=== PATIENT | male | born 1980 | race Caucasian/White ===

== ENCOUNTER 2019-12-22 08:54 | Outpatient (REF) | payer MEDICAID, OTHER, SELFPAY ==
--- NOTE | 2019-12-22 09:07 | US_ITS ---
EXAMINATION: US THYROID CLINICAL INFORMATION: Hypothyroidism. COMPARISON: None TECHNIQUE: Linear transducer conti-scale and color Doppler examination with attention to the region of the thyroid. FINDINGS: SIZE: The thyroid is within normal size and grossly symmetric. Measurements of the thyroid lobes and nodules are given in sagittal, anteroposterior and transverse dimensions respectively. Right Thyroid Lobe: 5.6 x 1.8 x 2.6 cm, volume 13.5 mL. Parenchyma: The gland echotexture is heterogeneous. Thyroid vascularity is normal. Left Thyroid Lobe: 6.4 x 1.5 x 2.3 cm, volume 11.5 mL. Parenchyma: The gland echotexture is heterogeneous. Thyroid vascularity is normal. Isthmus: 0.3 cm in maximum AP dimension. Parenchyma: There is no isolated dominant nodule. No calcifications. Some fine background micronodules are suggested on some of the images which could be associated with Margarette's thyroiditis. Clinically correlate. NODES: No lymphadenopathy is seen in the tissue surrounding the thyroid gland. US/US thyroid IMPRESSION: 1. Thyroid within normal size. No isolated dominant nodule or adenopathy. 2. Questionable micronodules suggested on some of the images which may be associated with Margarette's thyroiditis. Clinically correlate.
== END 2019-12-22 08:55 | disposition home or self-care (01) ==
LOC: HO.US 08:54
PROVIDERS: Visit Provider Internal Medicine
DX: E03.9 Hypothyroidism, unspecified (principal)
CPT/HCPCS: 76536

== ENCOUNTER 2021-06-01 09:43 | Outpatient (REF) | payer MEDICAID, OTHER, SELFPAY ==
--- NOTE | 2021-06-01 09:47 | EMG_ITS ---
This is a 40-year-old man with right greater than left upper extremity numbness. He works as a painter and body mechanic apprentice. PHYSICAL EXAMINATION: He is alert and oriented with normal intellectual functions. No Tinel or Phalen sign. IMPRESSION: Carpal tunnel syndrome. Nerve conduction EMG study: Moderately severe carpal tunnel syndrome on the right. Early carpal tunnel syndrome on the left. Normal EMG of the right C5-T1 innervated muscles. MD JIM Sainz/LUIS MANUEL / [id number]
== END 2021-06-01 09:44 | disposition home or self-care (01) ==
LOC: HO.NEURO 09:43
PROVIDERS: Visit Provider Pediatrics
DX: R20.0 Anesthesia of skin (principal)
CPT/HCPCS: 95885; 95913

== ENCOUNTER 2022-10-29 00:30 | Emergency (ER) | payer MEDICAID, OTHER, SELFPAY ==
--- NOTE | 2022-10-29 00:31 | ED.GENADULT ---
HPI - General Adult General Chief complaint: General Medical Stated complaint: HTN Time Seen by Provider: 10/29/22 00:30 Source: patient Mode of arrival: ambulatory Limitations: no limitations History of Present Illness HPI narrative: Patient with History of borderline hypertension not take any medication for last 1 year under increased stress notice a mild headache and checked his blood pressure was 160/90s no chest pain or shortness of breath had mild headache Related Data Previous Rx's Medication Instructions Recorded hydrochlorothiazide 25 mg tablet 25 mg PO QAM #30 tabs 10/29/22 lorazepam 0.5 mg tablet (Ativan) 0.5 mg PO BEDTIME PRN sleep #10 10/29/22 tabs Allergies Allergy/AdvReac Type Severity Reaction Status Date / Time No Known Allergies Allergy Verified 10/29/22 00:41 Review of Systems Review of Systems: Yes all other systems are reviewed and are negative [facility] Past Medical History Medical History (Updated 10/29/22 @ 01:46 by Turner Orellana MD) Hypertension Social History Social History Advance Directives: No Advance Directives Information Provided: Yes Physical Exam ED Vital Signs: Vital Signs - 24 hr 10/29/22 00:38 Pulse Rate 80 Respiratory Rate 18 Blood Pressure 140/91 H Pulse Oximetry 97 Oxygen Delivery Method Room Air BMI result Body Mass Index 35.5 Appearance: Alert. Oriented X3. No acute distress. Anxious Eyes: PERRLA, No Nystagmus ENT: Pharynx normal. Oral Mucosa moist Neck: Normal inspection. Neck supple. CVS: Normal heart rate and rhythm. Pulses normal. Respiratory: No respiratory distress. Equal air entry bilateral, no wheezing/rales/rhonchi Abdomen: Soft and nontender. Bowel sounds are present, no mass palpable, no CVA tenderness Skin: Skin warm and dry. Normal skin color. Normal skin turgor. Extremities: No lower extremity edema. No calf tenderness Neuro: Oriented X 3. No motor deficit. No sensory deficit.No cerebellar signs , cranial nerves II-XII intact Medications Administered Discontinued Medications Generic Name Dose Route Start Last Admin Trade Name Freq PRN Reason Stop Dose Admin Lorazepam 0.5 mg 10/29/22 00:47 10/29/22 00:56 Lorazepam 0.5 Mg Tablet PO 10/29/22 00:48 0.5 mg ONCE ONE Administration Medical Decision Making Medical Decision Making [facility] Narrative: Patient with anxiety with borderline hypertension EKG without any ischemic changes blood pressure improved during stay in the ER discharge patient home on Ativan 0.5 mg for anxiety and stress and hydrochlorothiazide for blood pressure control Lab Data [facility] Lab Attestation statement: I reviewed the patient's lab results. 10/29/22 00:54 10/29/22 00:54 Labs: Lab Results 10/29/22 10/29/22 Range/Units 00:54 00:54 WBC 7.2 (4.8-10.8) X10*3/uL RBC 4.66 (4.60-5.80) X10*6/uL Hgb 14.5 (14.0-18.0) g/dl Hct 43.2 (42.0-52.0) % MCV 92.7 (80.0-98.0) fL MCH 31.1 (27.0-33.0) pg MCHC 33.6 (31.0-36.0) g/dl RDW 12.9 (11.0-16.0) % Plt Count 263 (160-400) X10*3/uL MPV 9.4 (9.4-12.4) fL Immature Gran % (Auto) 1.3 H (0.0-0.4) % Neut % (Auto) 52.5 (45-73) % Lymph % (Auto) 32.2 (20-40) % [place] % (Auto) 9.3 (2-11) % Eos % (Auto) 3.6 (0-4) % Baso % (Auto) 1.1 (0-2) % Lymph # (Auto) 2.3 (1.2-4.9) X10*3/uL [place] # (Auto) 0.7 (0.1-1.2) X10*3/uL Eos # (Auto) 0.3 (0.0-0.4) X10*3/uL Baso # (Auto) 0.1 (0.0-0.2) X10*3/uL Abs Immat Gran (auto) 0.09 H (0.00-0.03) X10*3/uL Absolute Neuts (auto) 3.8 (2.0-8.3) x10*3/uL Absolute Nucleated RBC 0.000 (0.0-0.012) X10*3/uL Nucleated RBC % (auto) 0.0 (0.0-0.2) /100WBC Sodium 140 (135-145) mmol/L Potassium 3.9 (3.3-5.1) mmol/L Chloride 107 (96-108) mmol/L Carbon Dioxide 25 (22-29) mmol/L Anion Gap 12 (12-20) BUN 23 H (9-16) mg/dL Creatinine 0.99 (0.5-1.4) mg/dL Estim Creat Clear Calc 107.5 Estimated GFR > 60 Random Glucose 101 (60-115) mg/dL Calcium 9.4 (8.4-10.2) mg/dL Independent Interpretation I performed an independent interpretation of an: EKG Interpretation: Normal sinus rhythm heart rate 77 beats per minute occasional PVCs unifocal no acute ST wave changes no acute ischemia Discharge Plan Discharge Clinical Impression: Anxiety, Hypertension Patient Disposition: Home, Self-Care Instructions: Chronic Hypertension (ED), Anxiety (ED) Additional Instructions: Take medication to relax and sleep as needed Check blood pressure daily should be less than 135/85 Take hydrochlorothiazide 25 mg daily for blood pressure control Follow with PCP Prescriptions: New hydrochlorothiazide 25 mg tablet 25 mg PO QAM Qty: 30 0RF lorazepam [Ativan] 0.5 mg tablet 0.5 mg PO BEDTIME PRN (Reason: sleep) Qty: 10 0RF
[2022-10-29 00:33] VITALS: BP 164/106
--- NOTE | 2022-10-29 00:36 | ECG_ITS ---
Test Reason : HYPERTENSION Blood Pressure : / mmHG Vent. Rate : 077 BPM Atrial Rate : 077 BPM P-R Int : 146 ms QRS Dur : 082 ms QT Int : 364 ms P-R-T Axes : 030 041 024 degrees QTc Int : 411 ms Sinus rhythm with occasional Premature ventricular complexes Otherwise normal ECG No previous ECGs available Referred By: Turner Orellana Electronically Signed By:AMARA MOYA
[2022-10-29 00:38] VITALS: BP 140/91; PULSE 80; RESP 18; O2SAT 97; BMI 35.5
[2022-10-29] MEDS: LORazepam 0.5 MG TABLET PO (00:56)
[2022-10-29 00:59] LABS: MANUAL DIFF FLAG NO
[2022-10-29 01:03] LABS: Basophils Absolute Auto 0.1 X10*3/uL (0.0-0.2); Basophils Percent Auto 1.1 % (0-2); Eosinophils Absolute Auto 0.3 X10*3/uL (0.0-0.4); Eosinophils Percent Auto 3.6 % (0-4); Hematocrit 43.2 % (42.0-52.0); Hemoglobin 14.5 g/dl (14.0-18.0); Imm Gran Abs Auto 0.09 X10*3/uL (0.00-0.03); Imm Gran Pct Auto 1.3 % (0.0-0.4); Lymphocytes Absolute Auto 2.3 X10*3/uL (1.2-4.9); Lymphocytes Percent Auto 32.2 % (20-40); Mean Corpuscular HGB Conc 33.6 g/dl (31.0-36.0); Mean Corpuscular Hemoglobin 31.1 pg (27.0-33.0); Mean Corpuscular Volume 92.7 fL (80.0-98.0); Mean Platelet Volume 9.4 fL (9.4-12.4); Monocytes Absolute Auto 0.7 X10*3/uL (0.1-1.2); Monocytes Percent Auto 9.3 % (2-11); Neutrophils Absolute Auto 3.8 x10*3/uL (2.0-8.3); Neutrophils Percent Auto 52.5 % (45-73); Platelet Count 263 X10*3/uL (160-400); Red Blood Count 4.66 X10*6/uL (4.60-5.80); Red Cell Distribution Width 12.9 % (11.0-16.0); White Blood Count 7.2 X10*3/uL (4.8-10.8)
[2022-10-29 01:16] LABS: Anion Gap 12 (12-20); Blood Urea Nitrogen 23 mg/dL (9-16); Calcium 9.4 mg/dL (8.4-10.2); Carbon Dioxide 25 mmol/L (22-29); Chloride 107 mmol/L (96-108); Creatinine Clr Calc Pharmacy 107.5; Estimated Glomerular Filt Rate > 60; Glucose Random 101 mg/dL (60-115); Potassium 3.9 mmol/L (3.3-5.1); Sodium 140 mmol/L (135-145)
--- OUTSIDE RECORDS SUMMARY | 2022-10-29 01:28 | XMS_ITS | Continuity of Care Document ---
Author Name Unknown Organization [facility] ter Address [address] [place] [id number]- Care Team Providers Care Hogshead Cooper Name Role Phone Not on Staff, PCP Primary Care Physician Unavail able Encounter [facility] Date(s): 07/23/19 - 07/24/[address] [address]- [facility] Encounter Diagnosis Chest pain(Final) - 07/24/19 Discharge Disposition: A-D/C Home Attending Physician: Bradford Bella MD Admitting Physician: Bradford Bella MD Referring Physician: Not on Staff, Referring MD Allergies, Adverse Reactions, Alerts Substance Reaction Severity Status NKA Active Medications Excedrin 2 tablet, By Mouth, Every 6 hours, 0 Refills, Maintenance, 04/23/14 20:43:59 Start Date: 04/23/14 Status: Ordered ibuprofen 400 mg oral tablet 400 mg, 1, tablet, By Mouth, Every 6 hours, PRN, # 60 tablet, Refills 0, Tot. Refills 0, Maintenance, Pain , Moderate, 07/24/19 10:43:00 EDT, Print Requisition Start Date: 07/24/19 Status: Ordered ibuprofen 600 mg oral tablet 1 tablet = 600 mg, By Mouth, Every 8 hours, # 30 tablet, 0 Refills, Maintenance, Tablet Start Date: 03/02/13 Status: Ordered Valium 5 mg oral tablet 1 tablet = 5 mg, By Mouth, 2 times a day, # 4 tablet, 0 Refills, Maintenance, Tablet Start Date: 03/02/13 Status: Ordered Results Radiology Reports * Exam Date Time Procedure Performing Provider Status 07/24/19 9:58 AM Chest 2 Views Frontal and Lat Corinne Greene; Ileana (Verified) Notes: (Chest 2 Views Frontal and Lat) Reason For Exam: Angina RESULT: Chest 2 Views Frontal and Lat Chest 2 Views Frontal and Lat INDICATION / CLINICAL QUESTION: Chest pressure today. Chest pain episode 3 days ago. COMPARISON: None. FINDINGS: LINES AND TUBES: None. LUNGS AND PLEURA: Clear lungs. Normal pulmonary vascularity. No pleural effusion. No pneumothorax. HEART, MEDIASTINUM AND KENNEY: Normal. BONES AND SOFT TISSUES: Normal. IMPRESSION: Normal. WSN: [id number] Ordering Physician: Brady Miller Dictated By: Sandoval Robles MD Dictated Date/Time: 07/24/19 10:04 a Reviewed By: Sandoval Robles MD Signed By: aSndoval Robles MD Signed Date/Time: 07/24/19 10:04 am Transcribed By: NOLAN Transcribed Date/Time: 07/24/19 10:04 am Vital Signs Most recent to oldest [Reference Range]: 1 2 3 Oxygen Saturation [94-100 %] 98 % (07/24/19 11:50 AM) 97 % (07/24/19 10:00 AM) 97 % (07/24/19 9:20 AM) Pulse Rate [55-90 bpm] 68 bpm (07/24/19 11:50 AM) 68 bpm (07/24/19 10:00 AM) 90 bpm (07/24/19 9:20 AM) Blood Pressure [90-138/55-84 mm Hg] 143/86mm Hg *H* (07/24/19 11:50 AM) 157/97mm Hg *H* (07/24/19 10:00 AM) 132/86mm Hg (07/24/19 9:20 AM) Respiratory Rate [16-30 br/min] 18 br/min (07/24/19 11:50 AM) 21 br/min (07/24/19 10:00 AM) 16 br/min (07/24/19 9:20 AM) Temperature [96.8-100.4 DegF] 97.8 DegF (07/24/19 4:24 AM) 98.1 DegF (07/24/19 12:22 AM) Liters per Minute 0 L/min (07/24/19 4:24 AM) Mode of Delivery (Oxygen) Room air (07/24/19 11:50 AM) Room air (07/24/19 10:00 AM) Room air (07/24/19 9:20 AM) Blood pressure sites Arm, right (07/24/19 6:58 AM) Arm, right (07/24/19 4:24 AM) Arm, left (07/24/19 12:22 AM) Temperature Route Oral (07/24/19 4:24 AM) Oral (07/24/19 12:22 AM)
[2022-10-29 01:51] VITALS: BP 124/85; PULSE 81; RESP 16; O2SAT 96
[2022-10-29 03:03] LABS: Troponin-I High Sensitivity < 2.7 ng/L (<3.5-35.0)
== END 2022-10-29 01:51 | disposition home or self-care (01) ==
PROVIDERS: Emergency Provider Internal Medicine
DX: F41.1 Generalized anxiety disorder (principal); F43.0 Acute stress reaction; I10 Essential (primary) hypertension; Z79.899 Other long term (current) drug therapy
CPT/HCPCS: 36415; 80048; 84484; 85025; 93005; 99283

== ENCOUNTER 2022-12-16 09:25 | Outpatient (REF) | payer MEDICAID, OTHER, SELFPAY ==
[2022-12-16 15:30] LABS: Alanine Aminotransferase 24 U/L (0-40); Albumin Level 4.3 g/dL (3.5-5.0); Alkaline Phosphatase 70 U/L (39-117); Anion Gap 13 (12-20); Aspartate Amino Transferase 21 U/L (5-37); Bilirubin Total 0.3 mg/dL (0.0-1.0); Blood Urea Nitrogen 20 mg/dL (9-16); Calcium 9.4 mg/dL (8.4-10.2); Carbon Dioxide 25 mmol/L (22-29); Chloride 105 mmol/L (96-108); Cholesterol 222 mg/dL (<200); Estimated Glomerular Filt Rate > 60; Glucose Fasting 94 mg/dL (60-99); HDL Cholesterol 52 mg/dL (>40); LDL Cholesterol Calculated 145 mg/dL (<100); Potassium 4.4 mmol/L (3.3-5.1); Sodium 139 mmol/L (135-145); Total Protein 7.7 g/dL (6.5-8.0); Triglycerides 127 mg/dL (<150)
[2022-12-16 15:32] LABS: TSH reflex Free T4 2.24 uIU/mL (0.32-4.0)
== END 2022-12-16 09:26 | disposition home or self-care (01) ==
LOC: HO.CHCLDS 09:25
PROVIDERS: Visit Provider Internal Medicine
DX: E03.9 Hypothyroidism, unspecified (principal); I10 Essential (primary) hypertension
CPT/HCPCS: 36415; 80053; 80061; 84443

== ENCOUNTER 2023-02-14 08:59 | Outpatient (REF) | payer MEDICAID, OTHER, SELFPAY ==
[2023-02-15 07:43] LABS: Prolactin 5.2 ng/mL (2.0-18.0)
[2023-02-21 15:53] LABS: Testosterone, Free 57.3 pg/mL (35.0-155.0); Testosterone, Total 235 ng/dL (250-1100)
== END 2023-02-14 09:00 | disposition home or self-care (01) ==
LOC: HO.CHCLDS 08:59
PROVIDERS: Visit Provider Internal Medicine
DX: R53.83 Other fatigue (principal)
CPT/HCPCS: 36415; 84146; 84402; 84403

== ENCOUNTER 2023-03-25 08:17 | Outpatient (REF) | payer OTHER, SELFPAY ==
[2023-03-31 21:33] LABS: Testosterone, Free 75.3 pg/mL (35.0-155.0); Testosterone, Total 243 ng/dL (250-1100)
== END 2023-03-25 08:18 | disposition home or self-care (01) ==
LOC: HO.CHCLDS 08:17
PROVIDERS: Visit Provider Internal Medicine
DX: R79.89 Other specified abnormal findings of blood chemistry (principal)
CPT/HCPCS: 36415; 84402; 84403

== ENCOUNTER 2023-07-11 08:32 | Outpatient (REF) | payer OTHER, SELFPAY ==
[2023-07-11 14:59] LABS: Alanine Aminotransferase 37 U/L (0-40); Albumin Level 4.5 g/dL (3.5-5.0); Alkaline Phosphatase 67 U/L (39-117); Anion Gap 16 (12-20); Aspartate Amino Transferase 27 U/L (5-37); Bilirubin Total 0.3 mg/dL (0.0-1.0); Blood Urea Nitrogen 18 mg/dL (9-16); Calcium 9.2 mg/dL (8.4-10.2); Carbon Dioxide 26 mmol/L (22-29); Chloride 101 mmol/L (96-108); Cholesterol 232 mg/dL (<200); Estimated Glomerular Filt Rate > 60; Glucose Random 83 mg/dL (60-115); HDL Cholesterol 48 mg/dL (>40); LDL Cholesterol Calculated 136 mg/dL (<100); Potassium 3.7 mmol/L (3.3-5.1); Sodium 139 mmol/L (135-145); Total Protein 7.9 g/dL (6.5-8.0); Triglycerides 244 mg/dL (<150)
== END 2023-07-11 08:33 | disposition home or self-care (01) ==
LOC: HO.CHCLDS 08:32
PROVIDERS: Visit Provider Internal Medicine
DX: I10 Essential (primary) hypertension (principal); E03.9 Hypothyroidism, unspecified
CPT/HCPCS: 36415; 80053; 80061; 84443

== ENCOUNTER 2023-09-16 09:24 | Outpatient (REF) | payer OTHER, SELFPAY ==
[2023-09-16 14:07] LABS: Hematocrit 49.3 % (42.0-52.0); Hemoglobin 16.3 g/dl (14.0-18.0)
[2023-09-21 13:38] LABS: Testosterone-Albumin 4.5 g/dL (3.6-5.1); Testosterone-Bioavailable 137.9 ng/dL (110.0-575.0); Testosterone-Free 67.1 pg/mL (46.0-224.0); Testosterone-SHBG 8 nmol/L (10-50); Testosterone-Total 225 ng/dL (250-1100)
== END 2023-09-16 09:25 | disposition home or self-care (01) ==
LOC: HO.CHCLDS 09:24
PROVIDERS: Visit Provider Nurse Practitioner Acute Care
DX: E29.1 Testicular hypofunction (principal)
CPT/HCPCS: 36415; 84402; 84403; 85014; 85018

== ENCOUNTER 2024-07-12 08:11 | Outpatient (REF) | payer OTHER, SELFPAY ==
--- OUTSIDE RECORDS SUMMARY | 2024-07-12 08:15 | XMS_ITS | Clinical Summary ---
Author Organization [facility] Address [address] [place] [address] Care Team Providers Care Construction Accountant Name Role Phone Nilton Louis MD Primary Care Prov ider Allergies No known active allergies Medications ProAir HFA 90 mcg/actuation inhaler INHALE TWO PUFFS FOUR TIMES DAILY NEEDED FOR WHEEZING 2 Active benzonatate (TESSALON) 100 mg capsule Take 100 mg by mouth every 4 hours as needed. 2 Active hydroCHLOROthia zide (HYDRODIURIL) 25 mg tablet Take 25 mg by mouth once a day. 2 Active levothyroxine (SYNTHROID, LEVOTHROID) 112 mcg tablet TAKE ONE TABLET DAILY 2 Active meloxicam (MOBIC) 15 mg tablet Take 15 mg by mouth once a day. 1 Active safety needles 25 gauge x 1 needle 0.5 mL once a week. Use to inject Testosterone into the shoulder, thigh, or buttocks muscle as directed. 4 each 4 07/14/19 25 Active syringe, disposable, 3 mL syringe 0.5 mL once a week. For Testosterone injections, as directed. 30 each 4 07/14/19 25 Active needle, disp, 22 G 22 gauge x 1 needle 0.5 mL once a week. Use to draw the Testosterone from the bottle into the syringe. 30 each 4 07/14/19 25 Active sildenafiL (VIAGRA) 50 mg tablet TAKE 1 TABLET 1 HOUR BEFORE SEXUAL RELATIONS ONCE DAILY NEEDED. 12 tablet 11 5 Active Easy Touch Hypodermic Needle 25 gauge x 1 needle Use to inject Testosterone into the shoulder, thigh, or buttocks muscle DIRECTED 0.5ml's ONCE PER WEEK 4 each 5 Active testosterone cypionate (DEPO-TESTOSTER ONE) 200 mg/mL injection Inject 0.25 mL (50 mg total) into the shoulder, thigh, or buttocks muscle as directed once a week. 4 mL 5 5 12/26/19 25 Active Active Problems Problem Noted Date Diagnosed Date Ventral hernia without obstruction or gangrene 1 Encounters Date Type Department Care Team Description 06/24/2024 Orders Only [facility] [address] [address] Talent Acquisition Director: Eduardo Hewitt NP 06/23/2024 Telephone [facility] [address] [address] Talent Acquisition Director: Mckenzie Rondon NP 06/23/2024 Refill [facility] [address] [address] Talent Acquisition Director: Mckenzie Rondon NP 06/23/2024 Refill [facility] [address] [address] Talent Acquisition Director: Eduardo Hewitt NP 06/17/2024 Refill [facility] [address] [address] Talent Acquisition Director: Mckenzie Rondon NP 06/13/2024 Refill [facility] [address] [address] Talent Acquisition Director: Mckenzie Rondon NP 05/31/2024 Refill [facility] [address] [place] [address] Talent Acquisition Director: Eduardo Hewitt NP 04/24/2024 Refill [facility] [address] [place] [address] Talent Acquisition Director: Eduardo Hewitt NP from Last 3 Months Family History Medical History Relation Name Comments Prostate cancer Father Bladder Cancer Neg Hx Kidney cancer Neg Hx Urolithiasis Neg Hx Relation Name Status Comments Father Social History Tobacco Use Types Packs/Day Years Used Date Smoking Tobacco: Former Cigarettes Smokeless Tobacco: Never Tobacco Cessation:Counseling Given: Yes Comments:13 years - smoked 1.2 PPD; quit 10 years ago Alcohol Use Standard Drinks/Week Comments Yes 0 (1 standard drink = 0.6 oz pur e alcohol) 5-6/month Sex and Gender Information Value Date Recorded Sex Assigned at Male 05/12/2023 1:54 PM EDT Legal Sex Male 9:51 AM EDT Gender Identity Male 05/12/2023 1:54 PM EDT Sexual Orientation Straight 12/26/2023 9: 53 AM EDT Last Filed Vital Signs Vital Sign Reading Time Taken Comments Blood Pressure 145/92 01/02/2024 8:16 AM EST Pulse 95 01/02/2024 8:16 AM EST Temperature - - Respiratory Rate - - Oxygen Saturation 99% 01/02/2024 8:16 AM EST Inhaled Oxygen Concentration - - Weight 109 kg (240 lb 4.8 oz) 01/02/2024 8:16 AM EST Height - - Body Mass Index - - Plan of Treatment Upcoming Encounters Date Type Department Care Team (Late st Contact Info) Description 09/16/2024 4:30 PM EDT Telehealth [facility] [address] [place] [id number] Talent Acquisition Director: Eduardo Hewitt NP [address] [place] [id number] Health Maintenance Due Date Last Done Comments Varicella Vaccines (1 of 2 - 13+ 2-dose series) 1993 Hepatitis B Vaccines (1 of 3 - 19+ 3-dose series) 06/20/1999 COVID-19 Vaccine ( - 2023-2 5 season) 2023 02/19/2021, 08/12/2020, 07/22/2020 Alcohol/Substance Use Screening 02/25/2024 Depression Screening and Follow-Up 02/25/2024 Social Drivers of Health Annual Screening 02/25/2024 Basic Metabolic Panel 07/10/2024 07/11/2023 Influenza Vaccine (Season Ended) 2024 04/01/2017 DTaP,Tdap,and Td Vaccines (2 - Td or Tdap) 01/15/2027 01/15/2017 RSV Vaccine (60+ years old and patients) (1 - 1-dose 75+ series) 06/20/2055 HIV Screening Completed 04/08/2022 Hepatitis C Screening Completed 04/08/2022 Pneumococcal Vaccine: Pediatric (0-5 Years) and At-Risk Patients (6-50 Years) Aged Out No longer eligible based on patient's age to complete this topic Insurance [employer] HSNO/FREE CARE Care Teams Construction Accountant Relationship Specialty Start Date End Date MorenoNilton Bean MD [address] [place] [id number] PCP - General 10/24/22
--- OUTSIDE RECORDS SUMMARY | 2024-07-12 08:15 | XMS_ITS | Referral Summary ---
Author Organization [facility] Address [address] [place] [address] Care Team Providers Care Brush Hand Name Role Phone Nilton Louis MD Primary Care Prov ider Encounters Date Type Department Care Team Description 06/24/2024 Orders Only [facility] [address] [address] Doctor Naturopathic: Eduardo Hewitt NP 06/23/2024 Telephone [facility] [address] [address] Doctor Naturopathic: Mckenzie Rondon NP 06/23/2024 Refill [facility] [address] [address] Doctor Naturopathic: Mckenzie Rondon NP 06/23/2024 Refill [facility] [address] [address] Doctor Naturopathic: Eduardo Hewitt NP 06/17/2024 Refill [facility] [address] [address] Doctor Naturopathic: Mckenzie Rondon NP 06/13/2024 Refill [facility] [address] [address] Doctor Naturopathic: Mckenzie Rondon NP 05/31/2024 Refill [facility] [address] [place] [address] Doctor Naturopathic: Eduardo Hewitt NP 04/24/2024 Refill [facility] [address] [address] Doctor Naturopathic: Eduardo Hewitt NP from Last 3 Months Allergies No known active allergies Medications ProAir [...] Ventral hernia without obstruction or gangrene 1 Social History Tobacco Use Types Packs/Day Years [...] Info) Description 09/16/2024 4:30 PM EDT Telehealth [facility] [address] [place] [address] Doctor Naturopathic: Eduardo Hewitt NP [address] [place] [address] Insurance [employer] HSNO/FREE CARE Care Teams Brush Hand Relationship Specialty Start Date End Date Nilton Louis MD [address] [place] [id number] PCP - General 10/24/22
[2024-07-12 14:27] LABS: MANUAL DIFF FLAG NO
[2024-07-12 14:37] LABS: Basophils Absolute Auto 0.1 X10*3/uL (0.0-0.2); Basophils Percent Auto 0.9 % (0-2); Eosinophils Absolute Auto 0.2 X10*3/uL (0.0-0.4); Eosinophils Percent Auto 1.6 % (0-4); Hematocrit 49.6 % (42.0-52.0); Imm Gran Abs Auto 0.06 X10*3/uL (0.00-0.03); Imm Gran Pct Auto 0.7 % (0.0-0.4); Lymphocytes Absolute Auto 3.4 X10*3/uL (1.2-4.9); Mean Corpuscular HGB Conc 32.3 g/dl (31.0-36.0); Mean Corpuscular Hemoglobin 30.9 pg (27.0-33.0); Mean Corpuscular Volume 95.9 fL (80.0-98.0); Mean Platelet Volume 10.4 fL (9.4-12.4); Monocytes Absolute Auto 0.7 X10*3/uL (0.1-1.2); Neutrophils Absolute Auto 4.8 x10*3/uL (2.0-8.3); Neutrophils Percent Auto 51.8 % (45-73); Platelet Count 293 X10*3/uL (160-400); Red Blood Count 5.17 X10*6/uL (4.60-5.80); Red Cell Distribution Width 13.1 % (11.0-16.0); White Blood Count 9.2 X10*3/uL (4.8-10.8)
[2024-07-12 14:59] LABS: Alanine Aminotransferase 93 U/L (0-40); Albumin Level 4.6 g/dL (3.5-5.0); Alkaline Phosphatase 63 U/L (39-117); Anion Gap 13 (12-20); Aspartate Amino Transferase 41 U/L (5-37); Bilirubin Total 0.4 mg/dL (0.0-1.0); Blood Urea Nitrogen 20 mg/dL (9-16); Calcium 9.6 mg/dL (8.4-10.2); Carbon Dioxide 31 mmol/L (22-29); Chloride 101 mmol/L (96-108); Cholesterol 236 mg/dL (<200); Estimated Glomerular Filt Rate > 60; Glucose Random 83 mg/dL (60-115); HDL Cholesterol 56 mg/dL (>40); LDL Cholesterol Calculated 152 mg/dL (<100); Potassium 3.7 mmol/L (3.3-5.1); Sodium 141 mmol/L (135-145); Total Protein 7.9 g/dL (6.5-8.0); Triglycerides 140 mg/dL (<150)
[2024-07-12 15:17] LABS: TSH reflex Free T4 3.09 uIU/mL (0.32-4.0)
== END 2024-07-12 08:12 | disposition home or self-care (01) ==
LOC: HO.CHCLDS 08:11
PROVIDERS: Visit Provider Internal Medicine
DX: E03.9 Hypothyroidism, unspecified (principal)
CPT/HCPCS: 36415; 80053; 80061; 84443; 85025

== ENCOUNTER 2024-11-23 21:46 | Emergency (ER) | payer OTHER, SELFPAY ==
--- NOTE | ~2024-11-23 | XR_ITS ---
CLINICAL HISTORY: pain felt crack 3 view right ankle Comparison: None provided Findings: No acute fractures. Ankle mortise intact. No significant arthritic change or erosions. Moderate ankle joint effusion. Moderate swelling along the lateral malleolus. No radiopaque foreign body. IMPRESSION: 1. No evidence of acute fracture or dislocation. Moderate joint effusion and soft tissue swelling along the lateral malleolus. This document has been electronically signed by: Landry Pérez MD on 11/23/2024 22:55:23
[2024-11-23 22:02] VITALS: BP 132/85; PULSE 78; RESP 18; TEMP 36.9; O2SAT 95; BMI 32.6
--- NOTE | 2024-11-24 00:21 | ED_ITS ---
HPI - General Adult General Chief complaint: Extremity Injury, Lower Stated complaint: Foot pain/pressure Time Seen by Provider: 11/24/24 00:21 Source: patient Limitations: no limitations History of Present Illness ED Provider: Maria Alejandra Maguire PA-C HPI narrative: 44-year-old male with a history of hypertension presents with right ankle pain. Patient states he was walking up a flight of stairs, when he felt a ?crack?, in the ankle. Patient developed swelling along the lateral aspect, it has been difficult to bear weight. Related Data Previous Rx's ?Medication ?Instructions ?Recorded hydrochlorothiazide 25 mg tablet 25 mg PO QAM #30 tabs 10/29/22 lorazepam 0.5 mg tablet (Ativan) 0.5 mg PO BEDTIME PRN sleep #10 10/29/22 tabs ibuprofen 600 mg tablet 600 mg PO Q6H PRN pain #20 t abs 11/24/24 Allergies Allergy/AdvReac Type Severity Reaction Status Date / Time seafood Allergy Anaphylaxis Verified 11/23/24 22:05 Review of Systems Review of Systems: Yes all other systems are reviewed and are negative Constitutional: Constitutional: Denies fatigue and Denies fever(s) Musculoskeletal: Musculoskeletal: Reports arthralgias and Reports joint swelling Endocrine: Endocrine: Denies fatigue PMFSH Past Medical History Attestation statement: The following information was validated with the patient. Medical History (Updated 11/24/24 @ 01:06 by PAULINA Pearce) Hypertension Social History Social History Advance Directives: No Advance Directives Information Provided: Yes Do you have a plan to hurt others: No Plan Physical Exam ED Vital Signs: Vital Signs - 24 hr 11/23/24 22:02 11/24/24 01:29 Temperature 98.4 F 98.4 F Pulse Rate 78 78 Respiratory Rate 18 18 Blood Pressure 132/85 132/85 Pulse Oximetry 95 95 Oxygen Delivery Method Room Air Room Air BMI result Body Mass Index 32.6 Const Orientation/consciousness: patient oriented x3 Resp Effort & Inspection: normal respiratory effort Cardio Other: Normal peripheral perfusion Skin Other: Warm dry no rash Neuro General: patient oriented x3, gait normal, no focal motor deficits and CN's II- XI intact bilaterally Extrem Other: Swelling noted along lateral aspect of the ankle, limited flexion and extension secondary to pain. Psych Other: Cooperative Medications Administered Discontinued Medications Generic Name Dose Route Start Last Admin Trade Name Sheyla PRN Reason Stop Dose Admin Ibuprofen 600 mg 11/24/24 00:23 11/24/24 01:25 Ibuprofen 600 Mg Tablet PO 11/24/24 00:24 600 mg ONCE ONE Administration Medical Decision Making Medical Decision Making MDM Narrative: 44-year-old male with a history of hypertension presents with right ankle pain. Patient states he was walking up a flight of stairs, when he felt a ?crack?, in the ankle. Patient developed swelling along the lateral aspect, it has been difficult to bear weight. No chronic issues History: Per patient I have considered the following differential diagnoses: Fracture, dislocation, contusion, sprain Plan: X-ray ordered from triage there was no fracture or dislocation, the patient has some degree of arthritic changes, and an effusion, he has a sprain. We will treat accordingly. I have independently reviewed the following tests: X-ray ankle:Findings: No acute fractures. Ankle mortise intact. No significant arthritic change or erosions. Moderate ankle joint effusion. Moderate swelling along the lateral malleolus. No radiopaque foreign body. IMPRESSION: 1. No evidence of acute fracture or dislocation. Moderate joint effusion and soft tissue swelling along the lateral malleolus. Differential Diagnosis Differential Diagnoses: The differential diagnosis associated with the presentation includes See medical decision-making Admission/Observation Consideration of admission/observation: Escalation of care including admission/observation considered Not applicable Radiology Impression Discussion of test interpretation with radiology: I have reviewed the radiologist's reading. Discharge Plan Discharge Clinical Impression: Ankle sprain and strain Patient Disposition: Home, Self-Care Instructions: Ankle Sprain (ED), Crutch Instructions (ED), P.R.I.C.E. Treatment (ED), Walking Boot (ED) Additional Instructions: There was no fracture or dislocation. You sustained a sprain. You were also found to have some arthritic changes. See home care instructions. Use the wa lking boot and crutches, bear weight as tolerated. You can use ibuprofen 600 mg taken every 6 hours with food. Follow up with primary care as needed. Prescriptions: New ibuprofen 600 mg tablet 600 mg PO Q6H PRN (Reason: pain) Qty: 20 0RF No Action hydrochlorothiazide 25 mg tablet 25 mg PO QAM Qty: 30 0RF lorazepam [Ativan] 0.5 mg tablet 0.5 mg PO BEDTIME PRN (Reason: sleep) Qty: 10 0RF Interventions: ED Discharge Assessment Last Done: 11/24/24 01:29 Discharge Date/Time: 11/24/24 01:29 Print Language: Colombian
[2024-11-24 01:29] VITALS: BP 132/85; PULSE 78; RESP 18; TEMP 36.9; O2SAT 95
== END 2024-11-24 01:29 | disposition home or self-care (01) ==
PROVIDERS: Emergency Provider Emergency Medicine; PCP Internal Medicine
DX: S93.401A Sprain of unspecified ligament of right ankle, initial encounter (principal); Y93.01 Activity, walking, marching and hiking; Y93.9 Activity, unspecified; Y92.9 Unspecified place or not applicable
CPT/HCPCS: 73610; 99283

== ENCOUNTER → 2024-11-23 22:10 | Outpatient (BNV) | payer SELFPAY | PROVIDERS: PCP Internal Medicine; Visit Provider Student in an Organized Health Care Education/Training Program | DX: M25.461 Effusion, right knee (principal) | CPT/HCPCS: 73610 ==

== ENCOUNTER 2025-01-06 08:24 | Outpatient (REF) | payer SELFPAY ==
--- OUTSIDE RECORDS SUMMARY | 2025-01-06 08:46 | XMS_ITS | Encounter Summary ---
Author Organization [employer] Address [address] [facility] [address] [place] [address] Care Team Providers Care Pocket Cutter Name Role Phone Nilton Louis MD Primary Care Prov ider Reason for Visit * Reason Onset Date Comments Med Refill 06/24/2023 Encounter Details Date Type Department Care Team (Late st Contact Info) Description 06/24/2023 Refill [facility] [address] [place] [address] Nilton Louis MD [address] [place] [address] Acquired hypothyroidism Social History Tobacco Use Types Packs/Day Years Used Date Smoking Tobacco: Former Cigarettes Q uit: 2009 Depression Answer Date Recorded Patient Health Questionnaire-9 Score 0 04/12/2022 Housing Stability Answer Date Recorded What is your housing situation today? I have derek corado 12/16/[address] you li ve. Do you have problems with any of the following? None of the above 12/16/2022 Food Insecurity Answer Date Recorded Within the past 12 months, y ou worried that your food would run out before you got money to buy more: Never True 12/16/2022 Within the past 12 months,th e food you bought just didn't last and you didn't have enough money to get more: Never True Transportation Answer Date Recorded In the past 12 months, has l ack of transportation kept you from medical appts, meetings, work or from getting things needed for daily living? No 12/16/2022 Utilities Answer Date Recorded In the past 12 months, has t he electric, gas, oil or water company threatened to shut off services in your home? No 12/16/2022 Depression Answer Date Recorded Patient Health Questionnaire-2 Score 0 04/12/2022 Sex and Gender Information Value Date Recorded Sex Assigned at Male 12/24/2021 10:29 AM EDT Legal Sex Male 10:29 AM EDT Gender Identity Male 12/24/2021 10:29 AM EDT Sexual Orientation Straight 12/24/2021 10 :29 AM EDT documented as of this encounter Plan of Treatment Upcoming Encounters Date Type Department Care Team (Late st Contact Info) Description 01/06/2025 9:00 AM EST Office Visit [facility] [address] [place] [address] Jurgen Garcias DMD [address] [place] [address] Arrived documented as of this encounter Visit Diagnoses Diagnosis Acquired hypothyroidism Unspecified hypothyroidism documented in this encounter Additional Health Concerns Assessment Noted Time PHQ-9 Depression Total Score: 0 04/12/19 23 11:08 AM EST documented as of this encounter Care Teams Pocket Cutter Relationship Specialty Start Date End Date iNlton Louis MD [address] [place] [address] PCP - General Internal Medicine 07/05/19 documented as of this encounter
--- OUTSIDE RECORDS SUMMARY | 2025-01-06 08:46 | XMS_ITS | Encounter Summary ---
Author Organization [employer] Address [address] [facility] 7 [place] [address] Care Team Providers Care Gift Wrapper Name Role Phone Nilton Louis MD Primary Care Prov ider Reason for Visit * Reason Onset Date Comments Med Refill 08/18/2023 Encounter Details Date Type Department Care Team (Late st Contact Info) Description 08/18/2023 Refill [facility]EDS [address] [place] [address] Nilton Louis MD [address] [place] [address] Acquired hypothyroidism; Primary hypertension Social History Tobacco Use Types Packs/Day Years Used Date Smoking Tobacco: Former Cigarettes Q uit: 2009 Depression Answer Date Recorded Patient Health Questionnaire-9 Score 0 07/23/2023 Patient Health Questionnaire-9 Score 0 07/23/2023 Last PHQ-9: Questionnaire Data Not on file 0 07/23/2023 Housing Stability Answer Date Recorded What is your housing situation today? I have derek corado 07/23/[address] you li ve. Do you have problems with any of the following? None of the above 07/23/2023 Food Insecurity Answer Date Recorded Within the past 12 months, y ou worried that your food would run out before you got money to buy more: Never True 07/23/2023 Within the past 12 months,th e food you bought just didn't last and you didn't have enough money to get more: Never True Transportation Answer Date Recorded In the past 12 months, has l ack of transportation kept you from medical appts, meetings, work or from getting things needed for daily living? No 07/23/2023 Utilities Answer Date Recorded In the past 12 months, has t he electric, gas, oil or water company threatened to shut off services in your home? No 07/23/2023 Depression Answer Date Recorded Patient Health Questionnaire-2 Score 0 07/23/2023 Sex and Gender Information Value Date Recorded Sex Assigned at Male 12/24/2021 10:29 AM EDT Legal Sex Male 10:29 AM EDT Gender Identity Male 12/24/2021 10:29 AM EDT Sexual Orientation Straight 12/24/2021 10 :29 AM EDT documented as of this encounter Plan of Treatment Upcoming Encounters Date Type Department Care Team (Late st Contact Info) Description 01/06/2025 9:00 AM EST Office Visit [facility] AD[facility] [address] [place] [address] Jurgen Garcias DMD [address] [place] [address] Arrived documented as of this encounter Visit Diagnoses Diagnosis Acquired hypothyroidism Unspecified hypothyroidism Primary hypertension Unspecified essential hypertension documented in this encounter Additional Health Concerns Assessment Noted Time PHQ-9 Depression Total Score: 0 07/23/19 24 11:06 AM EDT documented as of this encounter Care Teams Gift Wrapper Relationship Specialty Start Date End Date Nilton Luois MD [address] [place] [address] PCP - General Internal Medicine 07/05/19 documented as of this encounter
--- OUTSIDE RECORDS SUMMARY | 2025-01-06 08:46 | XMS_ITS | Clinical Summary ---
Author Organization [employer] Address [address] [facility] [address]t [place] [address] Care Team Providers Care Drawing Checker Name Role Phone Nilton Louis MD Primary Care Prov ider Allergies No known active allergies Medications testosterone cypionate (Depo-Testosterone ) 200 MG/ML injection Inject 0.5 mL (100 mg total) into the shoulder, thigh, or buttocks muscle as directed once a week. Active levothyroxine (Synthroid, Levoxyl) 112 MCG tabletIndications: Acquired hypothyroidism TAKE ONE TABLET EVERY MORNING 90 tablet 3 5 Active Emollient (CeraVe Moisturizing) cream Apply 1 drop topically 2 times daily. 453 g 1 5 Active aspirin 81 MG EC tablet Take 1 tablet (81 mg) by mouth Once per day. 30 tablet 11 5 026 Active fexofenadine (Ciarra) 180 MG tablet Take 1 tablet (180 mg) by mouth if needed each day (Allergies). 90 tablet 11 5 026 Active cyclobenzaprine (Flexeril) 10 MG tablet Take 1 tablet (10 mg) by mouth at bedtime for 10 days. 10 tablet 5 Active fluticasone (Flonase) 50 MCG/ACT nasal spray Administer 1-2 sprays into each nostril Once per day. Shake gently. Before first use, prime pump. After use, clean tip and replace cap. 16 g 2 5 026 Active albuterol 108 (90 Base) MCG/ACT inhaler Inhale 2 puffs every 6 (six) hours if needed for wheezing. 18 g 11 5 026 Active hydroCHLOROthiazid e (HYDRODiuril) 25 MG tablet TAKE ONE TABLET EVERY DAY 90 tablet 1 Active meloxicam (Mobic) 15 MG tablet Take 1 tablet (15 mg) by mouth Once per day. 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 04/03/2023 Assessment & Plan (03/19/2024 10:04 AM EST): Following urology, on testosterone replacement Assessment & Plan (10/14/2023 9:42 AM EDT): On testosterone, followed by urology, he has felt mild improvements, Assessment & Plan (10/11/2023 10:20 PM EDT): Followed by urology Assessment & Plan (04/03/2023 2:07 PM EST): Patient had labs done on 2 occasions, both were low, will refer to urology Ventral hernia without obstruction or gangrene 1 04/03/2023 Primary hypertension 04/17/2022 Assessment & Plan (03/19/2024 10:03 AM EST): Controlled, continue low sodium diet and exercise as tolerated, keep bp log, target <140/90, continue same treatment Assessment & Plan (11/28/2023 2:06 PM EDT): Controlled, continue hydrochlorothiazide, increase in bp could be related to elevated testosterone levels, dose was decreased by urology this past week, told to keep bp log, follow up in 2 months, continue low sodium diet Assessment & Plan (10/14/2023 9:41 AM EDT): Contolled, contineu low sodium diet and exercise as tolerated, keep bp log, follow up in 4 months Assessment & Plan (10/11/2023 10:19 PM EDT): Controlled, continue low soium diet and exercise as tolerated, keep bp log, target <140/90 follow up in 4 months Assessment & Plan (2023 12:05 PM EDT): Controlled, continue hydrochlorothiazide 12.5, reinforced importance of low sodium diet, follow up in 4 months Assessment & Plan (04/03/2023 2:09 PM EST): Controlled, usually below 140/90, no changes will be made, reinforced low sodium diet and exercise as tolerated Assessment & Plan (10/07/2022 4:08 PM EDT): Told to monitor daily and keep a bp log, will order new labs, reinforced low sodium diet and exercise as tolerated Assessment & Plan (04/17/2022 1:59 PM EST): Results have been mostly above 140/90, reinforced low sodium diet and exercise as tolerated, will start hydrochlorothiazide 12.5mg daily, follow up in 1 month Acquired hypothyroidism 04/04/2022 Assessment & Plan (03/19/2024 10:04 AM EST): On levothyroxine, clinically euthyroid, new labs will be ordered for guidance of therapy Assessment & Plan (10/14/2023 9:42 AM EDT): On levothyroxine 112mcg, clinically euthyroid, will follow up in 4 months Assessment & Plan (2023 12:06 PM EDT): On Synthroid 112mcg, new labs willl be ordered, clincally euthyroid Assessment & Plan (10/07/2022 4:09 PM EDT): New labs will be ordered for guidance of therapy Assessment & Plan (04/04/2022 5:46 PM EST): Will place order for new labs for guidance of therapy Elevated blood pressure reading 04/04/2022 Assessment & Plan (04/04/2022 5:47 PM EST): Keep a bp log, reinforced low sodium diet and exercise as tolerated, will follow up in 1 week Chronic rhinitis 04/04/2022 Assessment & Plan (2023 12:06 PM EDT): Will renew flonase and fexofenadine Assessment & Plan (04/04/2022 5:47 PM EST): Will prescribe flonase Visit for vasectomy evaluation 04/04/2022 Assessment & Plan (04/04/2022 5:49 PM EST): Patient wants referal to urology for vasectomy evaluation, will place referal Umbilical hernia 03/25/2022 Assessment & Plan (12/13/2024 5:24 PM EDT): Will refer to surgery Assessment & Plan (10/14/2023 9:43 AM EDT): Will refer to surgery for eval for repair Assessment & Plan (10/07/2022 4:09 PM EDT): Will refer to surgery for evaluation Assessment & Plan (04/04/2022 5:48 PM EST): Will refer to surgery, hernia is reducible Assessment & Plan (03/25/2022 2:15 PM EST): Patient feels a bump in his belly, this has been for more than 1 year, will schedule a office visit for evaluation Subacute cough 03/25/2022 Palpitation 03/25/2022 Assessment & Plan (03/25/2022 2:16 PM EST): Will place order for a holter test, no shortness of breath reported Encounters Date Type Department Care Team Description 12/20/2024 10:15 AM EDT Office Visit [facility] [address] [place] [address] Shanye Anderson Dental calculus (Primary Dx); Dental caries; Periodontal disease 12/13/2024 3:45 PM EDT Office Visit [facility] [address] [place] [address] Nilton Louis MD Acquired hypothyroidism (Primary Dx); Acute right ankle pain; Umbilical hernia without obstruction and without gangrene 12/13/2024 Travel 12/09/2024 Telephone [facility] [address] [place] [address] Nilton Louis MD chart prep 12/06/2024 Travel 11/23/2024 Orders Only [facility] External Provider, [facility] 10/21/2024 Telephone [facility] [address] [place] [address] Nilton Louis MD Lab Orders 10/20/2024 Telephone [facility] [address] [place] [address] Nilton Louis MD Nurse Triage from Last 3 Months Immunizations Immunization Administration Dates Next Due Influenza injectable quadriv alent IIV4 with preservative 04/01/2017 Tdap 01/15/2017 Social History Tobacco Use Types Packs/Day Years Used Date Smoking Tobacco: Former Cigarettes Q uit: 2010 Passive Smoke Exposure: Past Smokeless Tobacco: Never Tobacco Cessation:Counseling Given: Not Answered Alcohol Use Standard Drinks/Week Comments Not Currently 0 (1 standard drink = 0.6 oz pur e alcohol) Depression Answer Date Recorded Patient Health Questionnaire-9 [...] Orientation Straight 12/24/2021 10 :29 AM EDT Last Filed Vital Signs Vital Sign Reading Time Taken Comments Blood Pressure 106/62 12/20/2024 9:59 AM EDT Pulse 76 12/20/2024 9:59 AM EDT Temperature 36.6 C (97.8 F) 12/13/2024 3:56 PM EDT Respiratory Rate 20 12/13/2024 3:56 PM EDT Oxygen Saturation 97% 05/19/2024 3:28 PM EDT Inhaled Oxygen Concentration - - Weight 90.3 kg (199 lb) 12/13/2024 3:56 PM EDT Height 167.6 cm (5' 6 ) 12/13/2024 3:56 PM EDT Body Mass Index 32.12 12/13/2024 3:56 PM EDT Plan of Treatment Upcoming Encounters Date Type Department Care Team (Late st Contact Info) Description 01/06/2025 9:00 AM EST Office Visit [facility] [address] [place] [address] Jurgen Garcias, DMD [address] [place] [address] Arrived Health Maintenance Due Date Last Done Comments Alcohol/Substance Use Screening 1992 Family Planning (PISQ) 06/20/1995 HPV Vaccines (1 - Male 3-dose series) 06/20/1995 Hepatitis B Vaccines (1 of 3 - 19+ 3-dose series) 06/20/1999 Depression Screening 07/22/2024 07/23/2023, 07/23/19 24 SDOH Screening 07/22/2024 07/23/2023 COVID-19 Vaccine ( season) 2024 02/19/2021, 08/12/2020, 07/22/2020 Influenza Vaccine (#1) 2024 04/01/2017 Dental X-Ray: Full Mouth 02/27/2025 02/26/2022 Dental Oral Exam 06/21/2025 12/20/2024, , 12/15/2023, Additional history exists Dental Prophylaxis 06/21/2025 12/20/2024, 0 06/15/2024, 12/15/2023 Disability Screening 12/06/2025 12/06/2024 Tobacco Screening 12/20/2025 12/20/2024 Dental X-Ray: Bitewings 12/21/2025 12/21/19 25, 04/09/2024, 12/15/2023, Additional history exists DTaP/Tdap/Td Vaccines (2 - Td or Tdap) 01/15/2027 01/15/2017 Lipid Panel 07/12/2029 07/12/2024, 06/24, 12/16/2022, Additional history exists Zoster Vaccines (1 of 2) 2030 RSV Patients and Patients Aged 60 years or older (1 - 1-dose 75+ series) 06/20/2055 HIV Screening Completed 04/08/2022, 11/08/2019 Hepatitis C Screening Completed 04/08/2022 HIB Vaccines Aged Out No longer eligi ble based on patient's age to complete this topic Hepatitis A Vaccines Aged Out No long er eligible based on patient's age to complete this topic IPV Vaccines Aged Out No longer eligi ble based on patient's age to complete this topic Meningococcal B Vaccine Aged Out No l onger eligible based on patient's age to complete this topic Meningococcal Vaccine Aged Out No anastacio gary eligible based on patient's age to complete this topic Pneumococcal Vaccine: Pediatrics (0 to 5 Years) and At-Risk Patients (6 to 49) Years Aged Out No longer eligible based on patient's age to complete this topic RSV under 20 months Aged Out No longe r eligible based on patient's age to complete this topic Rotavirus Vaccines Aged Out No longer eligible based on patient's age to complete this topic Procedures Procedure Name Priority Date/Time Associated Diagnosis Comments COMPREHENSIVE PERIODONTAL EVALUATION - NEW OR ESTABLISHED PATIENT Routine 12/20/2024 10:15 AM EDT Dental caries Periodontal disease PERIODIC ORAL EVALUATION - ESTABLISHED PATIENT Routine 12/20/2024 10:15 AM EDT Dental caries Periodontal disease BITEWINGS - 4 RADIOGRAPHIC IMAGES Routine 12/20/2024 10:15 AM EDT Dental caries Periodontal disease INTRAORAL - PERIAPICAL EACH ADDITIONAL RADIOGRAPHIC IMAGE Routine 12/20/2024 10:15 AM EDT Dental caries Periodontal disease INTRAORAL - PERIAPICAL FIRST RADIOGRAPHIC IMAGE Routine 12/20/2024 10:15 AM EDT Dental caries Periodontal disease ORAL HYGIENE INSTRUCTIONS Routine 12/20/2024 10:15 AM EDT Dental caries Periodontal disease CASE PRESENTATION, DETAILED AND EXTENSIVE TREATMENT PLANNING Routine 12/20/2024 10:15 AM EDT Dental caries Periodontal disease PROPHYLAXIS - ADULT Routine 12/20/2024 1 0:15 AM EDT Dental caries Periodontal disease 3 MO COMPOSITE FILLING Routine 12/20/2024 12:00 AM EDT 2 O AMALGAM FILLING Routine 12/20/2024 1 2:00 AM EDT XR ANKLE 3+ VIEWS RIGHT Routine 11/23/2024 10:55 PM EDT LIPID PANEL, STANDARD Routine 07/12/2024 8:12 AM EDT Acquired hypothyroidism HEPATITIS C AB W/REFL TO HCV RNA, QN, PCR Routine 04/08/2022 9:55 AM EST Elevated blood pressure reading HIV 1 RNA, QN PCR W/RFL JESS (RTI,PI,INTEGRASE) Routine 04/08/2022 9:55 AM EST Elevated blood pressure reading INTRAORAL - COMPLETE SERIES OF RADIOGRAPHIC IMAGES Routine 02/26/2022 8:00 AM EST from Last 3 Months or Most Recently Relevant to Health Maintenance Results * XR Ankle 3+ Views Right (11/23/2024 10:55 PM EDT) Anatomical Region Laterality Modality Lower Extremities, Ankle Right Radiogr aphic Imaging 11/23/2024 10:5 5 PM EDT Narrative 11/23/2024 10:56 PM EDT [address] [address] XRay Report Signed Patient: Micheal Lino MR#: [id number] : 1980 Acct:[id number] Age/Sex: 44 / M ADM Date: 11/23/24 Loc: .ED Attending Dr: Ordering Physician: Generic ED Physician Date of Service: 11/23/24 Procedure(s): XR ankle RT min 3V Accession Number(s): [id number] cc: Nilton Louis MD; Generic ED Physician Reason for Exam: pain felt crack CLINICAL HISTORY: pain felt crack 3 view right ankle Comparison: None provided Findings: No acute fractures. Ankle mortise intact. No significant arthritic change or erosions. Moderate ankle joint effusion. Moderate swelling along the lateral malleolus. No radiopaque foreign body. IMPRESSION: 1. No evidence of acute fracture or dislocation. Moderate joint effusion and soft tissue swelling along the lateral malleolus. This document has been electronically signed by: Landry Pérez MD on 11/23/2024 22:55:23 Dictated By: Landry Pérez MD Signed By: <Electronically signed by Landry Pérez MD in OV> 11/23/242254 DD/ 54 TD/TT: 11/23/242254 Corporate Quality Assurance Manager: Procedure Note Donotuseinterpreter, Image - 11/23/[address] [address] XRay Report Signed Patient: Micheal LinoMR#: [id number] : 1980Acct:[id number] Age/Sex: 44 / MADM Date: 11/23/24 Loc: HO.ED Attending Dr: Ordering Physician: Generic ED Physician Date of Service: 11/23/24 Procedure(s): XR ankle RT min 3V Accession Number(s): [id number] cc: Nilton Louis MD; Generic ED Physician Reason for Exam: pain felt crack CLINICAL HISTORY: pain felt crack 3 view right ankle Comparison: None provided Findings: No acute fractures. Ankle mortise intact. No significant arthritic change or erosions. Moderate ankle joint effusion. Moderate swelling along the lateral malleolus. No radiopaque foreign body. IMPRESSION: 1. No evidence of acute fracture or dislocation. Moderate joint effusion and soft tissue swelling along the lateral malleolus. This document has been electronically signed by: Landry Pérez MD on 11/23/2024 22:55:23 Dictated By: Landry Pérez MD Signed By: <Electronically signed by Landry Pérez MD in OV> 11/23/242254 DD/ 54 TD/TT: 11/23/242254 Corporate Quality Assurance Manager: [facility] External Provider IMG XR PROCEDURES Final Result * (ABNORMAL) Lipid Panel, Standard (07/12/2024 8:12 AM EDT) Triglycerides 140 <150 mg/dL [facility] Comment:Slight Lipemia.Burke able Triglyceride: less than 150 mg/dLBorderline High Triglyceride 150-199 mg/dLHigh Triglyceride: 200-499 mg/dLVery High Triglyceride: greater than or equal to 5OO mg/dL Cholesterol 236(H) <200 mg/dL [facility] Comment:Desirable Cholestero l: less than 200 mg/dLBorderline High Cholesterol: 200-239 mg/dLHigh Cholesterol: greater than 239 mg/dL LDL Cholesterol Calculated 152(H) <100 mg/dL [facility] Comment:Desirable LDL: less than 100 mg/dLNear Optimal/Above Optimal LDL: 110- 129 mg/dLBorderline High LDL: 130-159 mg/dLHigh LDL: 160-189 mg/dLVery High LDL: greater than or equal to 190 mg/dL HDL Cholesterol 56 >40 mg/dL [facility] Comment:Desirable HDL: great er than 40 mg/dL Note: This HDL assay may give artificially low results in patients with liver disease. Blood Venous blood specimen / Unknown 07/12/2024 8:12 AM EDT 07/12/2024 2:29 PM EDT Nilton Moreno MD LAB BLOOD ORDERABL ES Final Result [facility] [address] [place] [phone] * HIV-1 RNA, Quantitative, Real-Time PCR with Reflex to Genotype (RTI, PI, Integrase) (04/08/2022 9:55 AM EST) HIV 1 RNA, QN PCR NOT DETECTED copies/mL [facility], HIV 1 RNA, QN PCR NOT DETECTED Log copies/mL [facility], Comment: REFERENCE RANGE: NOT DETECTED copies/mL NOT DETECTED Log copies/mL This test was performed using Real-Time Polymerase Chain Reaction. Reportable range is 20 to 10,000,000 copies/mL (1.30-7.00 Log copies/mL). 04/08/2022 9:55 AM EST 04/08/2022 9:55 AM EST Narrative [facility] - 04/11/2022 8:05 PM EST FASTING:YES FASTING: YES Nilton Moreno MD LAB BLOOD ORDERABL ES Final Result Performing Organization Address City/[facility]/ZIP Co de Phone Number [facility] [address], [place] [address] [facility], [address] [place] [address] * Hepatitis C Antibody with Reflex to HCV, RNA, Quantitative, Real-Time PCR (04/08/2022 9:55 AM EST) Hepatitis C Antibody NON-REACT ZEB NON-REACT ZEB [facility] [place] Index 0.08 <1.00 [facility] [place] Comment: HCV antibody was non-reactive. There is no laboratory evidence of HCV infection. In most cases, no further action is required. However, if recent HCV exposure is suspected, a test for HCV RNA (test code 88689) is suggested. For additional information please refer to http://education.[employer]/faq/YOM55a0 (This link is being provided for informational/ educational purposes only.) Blood Venous blood specimen / Unknown 04/08/2022 9:55 AM EST 04/08/2022 9:55 AM EST Narrative [facility] - 04/11/2022 8:05 PM EST FASTING:YES FASTING: YES Nilton Moreno MD LAB BLOOD ORDERABL ES Final Result [facility] [address] [facility], [place] [address] [facility] [place] [address] [facility], ([address]) [place] [address] from Last 3 Months or Most Recently Relevant to Health Maintenance Insurance [facility] AD[facility] - [facility] FULL (MEDICAID) Care Teams Drawing Checker Relationship Specialty Start Date End Date Nilton Louis MD [address] [place] [address] PCP - General Internal Medicine 07/05/19
--- OUTSIDE RECORDS SUMMARY | 2025-01-06 08:46 | XMS_ITS | Encounter Summary ---
Author Organization [id number] Address [address] [facility] [address] [place] [address] Care Team Providers Care Water Hydrant Installer Name Role Phone Nilton Louis MD Primary Care Prov ider Encounter Details Date Type Department Care Team ([facility] st Contact Info) Description 03/19/2024 Orders Only [facility] PEDS [address] [place], [place] [phone] Nilton Louis MD [address] [place] [address] Social History Tobacco Use Types Packs/Day Years Used Date Smoking Tobacco: Former Cigarettes Q uit: 2010 Passive Smoke Exposure: Past Smokeless Tobacco: Never Alcohol Use Standard Drinks/Week Comments Not Currently [...] Upcoming Encounters Date Type Department Care Team ([facility] st Contact Info) Description 01/06/2025 9:00 AM EST Office Visit [facility] [address] [place] [address] Jurgen Garcias, ARLEN [address] [place] [address] Arrived documented as of this encounter Visit Diagnoses Not on filedocumented in this encounter Additional Health Concerns Assessment Noted Time PHQ-9 Depression Total Score: 0 07/23/19 24 11:06 AM EDT documented as of this encounter Care Teams Water Hydrant Installer Relationship Specialty Start Date End Date Nilton Louis MD [address] [place] [address] PCP - General Internal Medicine 07/05/19 documented as of this encounter
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
--- OUTSIDE RECORDS SUMMARY | 2025-01-06 08:46 | XMS_ITS | Encounter Summary ---
Author Organization [employer] Address [address] [facility] 7 [place] [address] Care Team Providers Care Geosciences Faculty Member Name Role Phone Nilton Louis MD Primary Care Prov ider Reason for Visit * Reason Comments Med Refill Encounter Details Date Type Department Care Team ([facility] Contact Info) Description 03/11/[address] [facility] PEDS [address] [place] [address] Nilton Louis MD [address] [place] [address] Social History Tobacco Use Types Packs/Day Years [...] Description 01/06/2025 9:00 AM EST Office Visit [facility] [address] [place] [address] Jurgen Garcias DMD [address] [place] [address] Arrived documented as of this encounter Visit Diagnoses Not on filedocumented in this encounter Additional Health Concerns Assessment Noted Time PHQ-9 Depression Total Score: 0 07/23/19 24 11:06 AM EDT documented as of this encounter Care Teams Geosciences Faculty Member Relationship Specialty Start Date End Date Nilton Louis MD [address] [place] [address] PCP - General Internal Medicine 07/05/19 documented as of this encounter
--- OUTSIDE RECORDS SUMMARY | 2025-01-06 08:46 | XMS_ITS | Encounter Summary ---
Author Organization [employer] Address [address] [facility] [address] [place] [address] Care Team Providers Care Color Maker Name Role Phone Nilton Louis MD Primary Care Prov ider Encounter Details Date Type Department Care Team ([facility] st Contact Info) Description 12/26/2022 Orders Only [facility] PEDS [address] [place], [place] [phone] Nilton Louis MD [address] [place] [address] Social History Tobacco Use Types Packs/Day Years Used Date Smoking Tobacco: Former Cigarettes Depression Answer Date Recorded Patient Health Questionnaire-9 Score 0 04/12/2022 Housing Stability Answer Date Recorded What is your housing situation today? I have derektammy corado 12/16/[address] you [...] [facility] [address] [place] [address] Jurgen Garcias, ARLEN [address] [place] [address] Arrived documented as of this encounter Visit Diagnoses Not on filedocumented in this encounter Additional Health Concerns Assessment Noted Time PHQ-9 Depression Total Score: 0 04/12/19 23 11:08 AM EST documented as of this encounter Care Teams Color Maker Relationship Specialty Start Date End Date Nilton Louis MD [address] [place] [address] PCP - General Internal Medicine 07/05/19 documented as of this encounter
[2025-01-06 15:01] LABS: Alanine Aminotransferase 43 U/L (0-40); Albumin Level 5.1 g/dL (3.5-5.0); Alkaline Phosphatase 61 U/L (39-117); Anion Gap 11 (12-20); Aspartate Amino Transferase 36 U/L (5-37); Blood Urea Nitrogen 18 mg/dL (9-16); Calcium 9.9 mg/dL (8.4-10.2); Carbon Dioxide 31 mmol/L (22-29); Chloride 102 mmol/L (96-108); Cholesterol 227 mg/dL (<200); Estimated Glomerular Filt Rate > 60; HDL Cholesterol 56 mg/dL (>40); Potassium 4.4 mmol/L (3.3-5.1); Sodium 140 mmol/L (135-145); Total Protein 8.2 g/dL (6.5-8.0); Triglycerides 114 mg/dL (<150)
[2025-01-06 16:39] LABS: Free T4 (Free Thyroxine) 1.08 ng/dL (0.71-1.85)
== END 2025-01-06 08:25 | disposition home or self-care (01) ==
LOC: HO.CHCLDS 08:24
PROVIDERS: Visit Provider Internal Medicine
DX: E03.9 Hypothyroidism, unspecified (principal)
CPT/HCPCS: 36415; 80053; 80061; 84439; 84443